=== PATIENT | male | born 1985 | race Caucasian/White ===

== ENCOUNTER 2016-06-13 14:48 | Emergency (ER) | payer OTHER ==
--- NOTE | 2016-07-23 15:33 | ER ---
ADMIT: 06/13/2016 RM/LOC: ER [facility] MR#: [id number] [facility] [address] [place], [place] [id number] WALDEMAR, WILLIE Robles [address] [place] [address] Emergency Room Report SEX: M AGE: 31 : 1985 DATE: 06/13/2016 ADDENDUM: This patient comes to the ER because he has had chest pain for the last 30 minutes. It is right over his left chest and goes into his left arm. On physical exam, he is extremely tender to palpation in the area that seems to be worsened with movement of his left shoulder and arm. CBC, BMP, and cardiac enzymes were normal. EKG showed a normal sinus rhythm, and his chest x-ray was also normal. He was given Toradol, which helped with his pain. I did consult with Dr. Mattson concerning treatment of this patient. I explained to the patient since he was so tender and we could reproduce the pain and he had such relief with the Toradol, this is most likely musculoskeletal pain. We will have him follow up with Dr. Mckeon as needed. Please see my T-sheet. SARAH BETH Bauer / Gerardo Mattson MD / yusuf JOB #: [id number] CC: Gerardo Mattson MD, Attending Physician Hunter Mckeon MD, Family Physician
== END 2016-06-13 17:50 | disposition home or self-care (01) ==
LOC: ER 14:48
DX: R07.89 Other chest pain (principal); Z79.899 Other long term (current) drug therapy